=== PATIENT | female | born 1985 | race Hispanic/Latino ===

== ENCOUNTER 2017-10-15 13:18 | Emergency (ER) | payer SELFPAY ==
[2017-10-15] MEDS ORDERED: LIDOCAINE 1% MPF 5 ML VIAL ONE (13:45)
--- NOTE | 2017-10-15 14:35 | EDPHYS ---
Physician Documentation [facility] Name: Tammie Do Age: 32 yrs Sex: Female : 1985 Arrival Date: 10/15/2017 Time: 13:25 Bed 25 Private MD: ED Physician Edinson Christian HPI: 10/15 14:29 This 32 yrs old Female presents to ER via Ambulatory with complaints of rn Abscess. 14:29 The patient presents with an abscess of the face. Description: draining, erythematous, rn swollen. Onset: The symptoms/episode began/occurred 2 week(s) ago. Possible cause(s): unknown. Severity of symptoms: At their worst the symptoms were mild, in the emergency department the symptoms are unchanged. The patient has not experienced similar symptoms in the past. Reports "ball" on right side of face for months, started to mess with it, now red and inflamed, hurts to touch, no fever. . 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 - Social history:: Smoking status: Patient uses tobacco products, smokes one-half pack cigarettes per day. - Ebola Screening: : Patient negative for fever greater than or equal to 101.5 degrees Fahrenheit, and additional compatible Ebola Virus Disease symptoms Patient denies exposure to infectious person Patient denies travel to an Ebola-affected area in the 21 days before illness onset No symptoms or risks identified at this time. - Family history:: not pertinent. - Hospitalizations: : No recent hospitalization is reported. ROS: 14:29 Constitutional: Negative for fever, chills, and weight loss, Skin: + abscess right face rn 14:29 Neuro: Negative for headache, weakness, numbness, tingling, and seizure. rn Exam: 14:29 Constitutional: This is a well developed, well nourished patient who is awake, alert, rn and in no acute distress. Head/Face: Normocephalic, 2cm diameter fluctuant and warm lesion right face/quaker with tenderness, non-necrotic Vital Signs: 13:26 BP 163 / 91; Pulse 97; Resp 16; Temp 98.6; Pulse Ox 98% on R/A; Weight 52.16 kg; Height aj 4 ft. 9 in. (144.78 cm); 14:42 BP 138 / 90; Pulse 95; Resp 16; Pulse Ox 99% ; kr2 13:26 Body Mass Index 24.89 (52.16 kg, 144.78 cm) Procedures: 14:29 I \\T\\ D: Incision and drainage was performed for an abscess of the right face Prepped rn with Betadine, Anesthetized with 3 ml's 1% Lidocaine. Incised with #11 blade. Drained moderate amount purulent fluid. Dressing: band-aid the patient tolerated the procedure well. MDM: 13:26 Patient medically screened. rn 14:29 Differential diagnosis: abscess. Data reviewed: vital signs, nurses notes, and as a rn result, I will discharge patient. Counseling: I had a detailed discussion with the patient and/or guardian regarding: the historical points, exam findings, and any diagnostic results supporting the discharge/admit diagnosis, the need for outpatient follow up, to return to the emergency department if symptoms worsen or persist or if there are any questions or concerns that arise at home. Response to treatment: the patient's symptoms have markedly improved after treatment, Abscess completely drained, forehead now flattened and non-tender, and as a result, I will discharge patient. Special discussion: I discussed with the patient/guardian in detail that at this point there is no indication for admission to the hospital. It is understood, however, that if the symptoms persist or worsen the patient needs to return immediately for re-evaluation. Based on the history and exam findings, there is no indication for further emergent testing or inpatient evaluation. I discussed with the patient/guardian the need to see the contact assembler for further evaluation of the symptoms. I discussed with the patient/guardian the need to see the plastic surgeon for further evaluation of the symptoms. Administered Medications: 14:00 Drug: Lidocaine (1 %) 1 vials {Note: Given by Dr. Christian.} Volume: 5 ml; Route: kr2 Infiltration; 14:43 Follow up: Response: No adverse reaction kr2 Disposition: 10/15/17 14:34 Discharged to Home. Impression: Cutaneous abscess of face. - Condition is Stable. - Discharge Instructions: Abscess, Incision and Drainage. - Prescriptions for Clindamycin HCl 300 mg Oral Capsule - take 1 capsule by ORAL route every 6 hours for 10 days; 40 capsule. - Medication Reconciliation Form, Thank You Letter, Antibiotic Education, Prescription Opioid Use form. - Follow up: Private Physician; When: As needed; Reason: Recheck today's complaints, Re-evaluation by your physician. - Problem is new. - Symptoms have improved. Signatures: Carla Gutierrez RN RN Edinson Pinto MD MD rn Reaves, Karey, RN RN kr2 Corrections: (The following items were deleted from the chart) 14:31 14:29 Constitutional: This is a well developed, well nourished patient who is awake, rn alert, and in no acute distress. Head/Face: Normocephalic, 2cm diameter fluctuant and warm lesion right face/quaker with tenderness rn 14:43 14:34 10/15/2017 14:34 Discharged to Home. Impression: Cutaneous abscess of face. kr2 Condition is Stable. Forms are Medication Reconciliation Form, Thank You Letter, Antibiotic Education, Prescription Opioid Use. Follow up: Private Physician; When: As needed; Reason: Recheck today's complaints, Re-evaluation by your physician. Problem is new. Symptoms have improved. rn
--- NOTE | 2017-10-15 14:35 | ER ---
Nurse's Notes [facility] Name: Tammie Do Age: 32 yrs Sex: Female : 1985 Arrival Date: 10/15/2017 Time: 13:25 Bed 25 Private MD: Diagnosis: Cutaneous abscess of face Presentation: 10/15 13:25 Presenting complaint: Patient states: Abscess to right episcopal for 1 month that became aj inflamed after patient lanced at home ICU TECH. Transition of care: patient was not received from another setting of care. Onset of symptoms was September 15, 2017. Risk Assessment: Do you want to hurt yourself or someone else? Patient reports no desire to harm self or others. Initial Sepsis Screen: Does the patient meet any 2 criteria? No. Patient's initial sepsis screen is negative. Does the patient have a suspected source of infection? No. Patient's initial sepsis screen is negative. Care prior to arrival: None. 13:25 Method Of Arrival: Ambulatory aj 13:25 Acuity: YARELI 4 aj Triage Assessment: 13:26 General: Appears in no apparent distress. comfortable, Behavior is calm, cooperative, aj appropriate for age. Pain: Complains of pain in right episcopal. Neuro: Level of Consciousness is awake, alert, obeys commands, Oriented to person, place, time, situation, Appropriate for age. Respiratory: Airway is patent Respiratory effort is even, unlabored, Respiratory pattern is regular, symmetrical. Derm: Skin is intact, is healthy with good turgor, Skin is pink, warm \T\ dry. normal, Abscess located on right episcopal is dime sized, has no drainage, is red, is raised, was lanced by patient prior to arrival. 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 - Social history:: Smoking status: Patient uses tobacco products, smokes one-half pack cigarettes per day. - Ebola Screening: : Patient negative for fever greater than or equal to 101.5 degrees Fahrenheit, and additional compatible Ebola Virus Disease symptoms Patient denies exposure to infectious person Patient denies travel to an Ebola-affected area in the 21 days before illness onset No symptoms or risks identified at this time. - Family history:: not pertinent. - Hospitalizations: : No recent hospitalization is reported. Screenin:19 Abuse screen: Denies threats or abuse. Denies injuries from another. Nutritional kr2 screening: No deficits noted. Tuberculosis screening: No symptoms or risk factors identified. Fall Risk None identified. Assessment: 13:30 General: Appears in no apparent distress. comfortable, well groomed, well developed, kr2 well nourished, Behavior is calm, cooperative, appropriate for age. Pain: Complains of pain in right episcopal Pain currently is 8 out of 10 on a pain scale. Quality of pain is described as aching, tender, Is continuous, Alleviated by nothing. Neuro: Level of Consciousness is awake, alert, obeys commands, Oriented to person, place, time, situation, Appropriate for age. Cardiovascular: Capillary refill < 3 seconds in bilateral fingers Patient's skin is warm and dry. Respiratory: Airway is patent Respiratory effort is even, unlabored, Respiratory pattern is regular, symmetrical. EENT: Oral mucosa is moist. Derm: Skin is intact, is healthy with good turgor, Skin is pink, warm \T\ dry. Abscess located on right episcopal is nickel sized, has no drainage, is raised. Vital Signs: 13:26 BP 163 / 91; Pulse 97; Resp 16; Temp 98.6; Pulse Ox 98% on R/A; Weight 52.16 kg; Height aj 4 ft. 9 in. (144.78 cm); 14:42 BP 138 / 90; Pulse 95; Resp 16; Pulse Ox 99% ; kr2 13:26 Body Mass Index 24.89 (52.16 kg, 144.78 cm) ED Course: 13:25 Patient arrived in ED. aj 13:25 Triage completed. aj 13:26 Edinson Christian MD is Attending Physician. rn 13:26 Arm band placed on left wrist. Patient placed in an exam room. aj 13:35 Door closed. Warm blanket given. Head of bed elevated. kr2 13:40 La Beauchamp, DARLINE is Primary Nurse. kr2 14:00 Assist provider with I \T\ D: of an abscess on right episcopal Set up I\T\D tray. Performed by kr 2 Edinson Christian MD Dressing with 4X4s, tape Patient tolerated well. Patient did not have IV access during this emergency room visit. 14:22 Patient has correct armband on for positive identification. Bed in low position. Call kr2 light in reach. Side rails up X 1. Pulse ox on. NIBP on. Administered Medications: 14:00 Drug: Lidocaine (1 %) 1 vials {Note: Given by Dr. Christian.} Volume: 5 ml; Route: kr2 Infiltration; 14:43 Follow up: Response: No adverse reaction kr2 Outcome: 14:34 Discharge ordered by . rn 14:42 Discharged to home ambulatory, with friend. kr2 14:42 Condition: good 14:42 Discharge instructions given to patient, Instructed on discharge instructions, follow up and referral plans. medication usage, wound care, Demonstrated understanding of instructions, follow-up care, medications, wound care, Prescriptions given X 1. 14:43 Patient left the ED. kr2 Signatures: Carla Gutierrez RN RN aj Nieto, Roman, MD MD rn Reaves, Karey, RN RN kr2
== END 2017-10-15 14:43 | disposition home or self-care (01) ==
LOC: ER 13:18
PROC: 0J910ZZ Drainage of Face Subcutaneous Tissue and Fascia, Open Approach (ICD-10-PCS; principal; 2017-10-15)
DX: L02.01 Cutaneous abscess of face (principal); F17.210 Nicotine dependence, cigarettes, uncomplicated
CPT/HCPCS: 99284

== ENCOUNTER 2018-10-07 15:35 | Emergency (ER) | payer SELFPAY ==
[2018-10-07] MEDS ORDERED: TOBRAMYCIN 0.3% 5ML OPTH DROPS OPTH ONE (16:45)
[2018-10-07] MEDS ORDERED: TOBRAMYCIN SULF 80 MG/2 ML VIAL ONE (16:49)
--- NOTE | 2018-10-07 16:49 | EDPHYS ---
Physician Documentation [facility] Name: Tammie Do Age: 33 yrs Sex: Female : 1985 Arrival Date: 10/07/2018 Time: 15:38 Bed 16 Private MD: ED Physician eLatha Vail HPI: 10/07 16:51 This 33 yrs old Female presents to ER via Ambulatory with complaints of Eye snw Problem. 15:49 The patient is experiencing eyelid swelling post mowing, to the left eye, caused by snw debris. Onset: The symptoms/episode began/occurred suddenly, this morning. Duration: the symptoms are continuous. Aggravated by pressure. Patient "need glasses". Severity of symptoms: At their worst the symptoms were mild. The patient has not experienced similar symptoms in the past. The patient has not recently seen a physician. 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 - Social history:: Smoking status: Patient/guardian denies using tobacco. - Ebola Screening: : Patient negative for fever greater than or equal to 101.5 degrees Fahrenheit, and additional compatible Ebola Virus Disease symptoms Patient denies exposure to infectious person Patient denies travel to an Ebola-affected area in the 21 days before illness onset No symptoms or risks identified at this time. ROS: 15:49 Constitutional: Negative for fever, chills, and weight loss, ENT: Negative for injury, snw pain, and discharge, Neck: Negative for injury, pain, and swelling, Cardiovascular: Negative for chest pain, palpitations, and edema, Respiratory: Negative for shortness of breath, cough, wheezing, and pleuritic chest pain, Abdomen/GI: Negative for abdominal pain, nausea, vomiting, diarrhea, and constipation, Back: Negative for injury and pain, : Negative for injury, bleeding, discharge, and swelling, MS/Extremity: Negative for injury and deformity, Skin: Negative for injury, rash, and discoloration, Neuro: Negative for headache, weakness, numbness, tingling, and seizure, Psych: Negative for depression, anxiety, suicide ideation, homicidal ideation, and hallucinations. 15:49 Eyes: Positive for swelling, of the left upper eyelid and left lower eyelid. Exam: 15:48 Constitutional: This is a well developed, well nourished patient who is awake, alert, snw and in no acute distress. Head/Face: Normocephalic, atraumatic. ENT: Nares patent. No nasal discharge, no septal abnormalities noted. Tympanic membranes are normal and external auditory canals are clear. Oropharynx with no redness, swelling, or masses, exudates, or evidence of obstruction, uvula midline. Mucous membranes moist. Neck: Trachea midline, no thyromegaly or masses palpated, and no cervical lymphadenopathy. Supple, full range of motion without nuchal rigidity, or vertebral point tenderness. No Meningismus. Chest/axilla: Normal chest wall appearance and motion. Nontender with no deformity. No lesions are appreciated. Cardiovascular: Regular rate and rhythm with a normal S1 and S2. No gallops, murmurs, or rubs. Normal PMI, no JVD. No pulse deficits. Respiratory: Lungs have equal breath sounds bilaterally, clear to auscultation and percussion. No rales, rhonchi or wheezes noted. No increased work of breathing, no retractions or nasal flaring. Abdomen/GI: Soft, non-tender, with normal bowel sounds. No distension or tympany. No guarding or rebound. No evidence of tenderness throughout. Back: No spinal tenderness. No costovertebral tenderness. Full range of motion. Skin: Warm, dry with normal turgor. Normal color with no rashes, no lesions, and no evidence of cellulitis. MS/ Extremity: Pulses equal, no cyanosis. Neurovascular intact. Full, normal range of motion. Neuro: Awake and alert, GCS 15, oriented to person, place, time, and situation. Cranial nerves II-XII grossly intact. Motor strength 5/5 in all extremities. Sensory grossly intact. Cerebellar exam normal. Normal gait. Psych: Awake, alert, with orientation to person, place and time. Behavior, mood, and affect are within normal limits. 15:48 Eyes: Periorbital structures: swelling, that is moderate, on the left upper eyelid and left lower eyelid, Pupils: no acute changes, Extraocular movements: no acute changes, Conjunctiva: no acute changes, Corneas: no acute changes, Anterior chamber: normal, no hyphema. Vital Signs: 15:43 BP 142 / 89; Pulse 76; Resp 18 S; Pulse Ox 99% on R/A; Pain 5/10; sg 16:30 BP 127 / 73; Pulse 75; Resp 16 S; Pulse Ox 99% on R/A; ca1 17:30 BP 123 / 71; Pulse 73; Resp 16; Pulse Ox 100% on R/A; ca1 Visual Acuity: 16:40 Left Eye Visual acuity 20/20, Normal; Right Eye Visual acuity 20/20, Normal; Both Eyes ca1 Visual acuity 20/20; Without Lenses; MDM: 15:41 Patient medically screened. snw 16:50 Data reviewed: vital signs, nurses notes. Data interpreted: Pulse oximetry: on room air snw is 99 %. Interpretation: normal. Special discussion: I have referred the patient to see his PCP for further evaluation of high blood pressure. Based on the history and exam findings, there is no indication for further emergent testing or inpatient evaluation. I discussed with the patient/guardian the need to see the opthamologist for further evaluation of the symptoms, I discussed with the patient/guardian the need to see the primary care provider for further evaluation of the symptoms. 10/07 15:46 Order name: Visual Acuity; Complete Time: 16:44 snw Administered Medications: 17:04 Drug: Tobramycin Drops (0.3 %) 2 drops Route: Ophthalmic; Site: left eye; ca1 Disposition: 19:46 Co-signature as Attending Physician, Leatha Vail MD. ma2 Disposition: 10/07/18 16:48 Discharged to Home. Impression: Edema of eyelid. - Condition is Stable. - Discharge Instructions: Edema, How to Use Eye Drops and Eye Ointments, Eye Contusion, [id number]. - Prescriptions for Polytrim 10,000 unit- 1 mg/mL Ophthalmic drops - instill 2 drop by OPHTHALMIC route every 6 hours for 7 days; 1 Container. - Medication Reconciliation Form, Thank You Letter, Antibiotic Education, Prescription Opioid Use form. - Follow up: Emergency Department; When: As needed; Reason: Worsening of condition. Follow up: Katharina Friedman MD; When: 1 - 2 days; Reason: Recheck today's complaints, Continuance of care. Signatures: Mike Sullivan RN Julia Eastman, BITUMASTIC APPLIER-C BITUMASTIC APPLIER-Csnw Leatha Vail MD MD ma2 Maddy Dhaliwal RN RN ca1 Corrections: (The following items were deleted from the chart) 17:37 16:48 10/07/2018 16:48 Discharged to Home. Impression: Edema of eyelid. Condition is ca1 Stable. Forms are Medication Reconciliation Form, Thank You Letter, Antibiotic Education, Prescription Opioid Use. Follow up: Emergency Department; When: As needed; Reason: Worsening of condition. Follow up: Katharina Friedman; When: 1 - 2 days; Reason: Recheck today's complaints, Continuance of care. snw
--- NOTE | 2018-10-07 16:49 | ER ---
Nurse's Notes [facility] Name: Tammie Do Age: 33 yrs Sex: Female : 1985 Arrival Date: 10/07/2018 Time: 15:38 Bed 16 Private MD: Diagnosis: Edema of eyelid Presentation: 10/07 15:41 Presenting complaint: Patient states: I was mowing the grass yesterday afternoon, sg something flicked up and hit me in the right side of my face i dont know if it was a rock or what, but my left eye is red and irritated, it feels like something might be in my eye. Transition of care: patient was not received from another setting of care. Onset of symptoms was October 07, 2018. Risk Assessment: Do you want to hurt yourself or someone else? Patient reports no desire to harm self or others. Initial Sepsis Screen: Does the patient meet any 2 criteria? No. Patient's initial sepsis screen is negative. Does the patient have a suspected source of infection? No. Patient's initial sepsis screen is negative. Care prior to arrival: None. 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 - Social history:: Smoking status: Patient/guardian denies using tobacco. - Ebola Screening: : Patient negative for fever greater than or equal to 101.5 degrees Fahrenheit, and additional compatible Ebola Virus Disease symptoms Patient denies exposure to infectious person Patient denies travel to an Ebola-affected area in the 21 days before illness onset No symptoms or risks identified at this time. Screenin:45 Abuse screen: Denies threats or abuse. Denies injuries from another. Nutritional ca1 screening: No deficits noted. Tuberculosis screening: No symptoms or risk factors identified. Fall Risk None identified. Assessment: 15:45 General: Appears in no apparent distress. comfortable, Behavior is calm, cooperative, ca1 appropriate for age. Pain: Complains of pain in left lower eyelid and left upper eyelid Pain does not radiate. Pain currently is 6 out of 10 on a pain scale. Pain began 1 day ago. Neuro: Level of Consciousness is awake, alert, obeys commands, Oriented to person, place, time, situation. Cardiovascular: Heart tones S1 S2 present Capillary refill < 3 seconds Patient's skin is warm and dry. Respiratory: Airway is patent Respiratory effort is even, unlabored, Respiratory pattern is regular, symmetrical, Breath sounds are clear bilaterally. GI: No deficits noted. No signs and/or symptoms were reported involving the gastrointestinal system. : No deficits noted. No signs and/or symptoms were reported regarding the genitourinary system. EENT: Eyes Sclera/Cornea are clear in outer aspect of conjuctiva of left eye and inner aspect of conjunctiva of left eye. Derm: Skin is intact, is healthy with good turgor, Skin is pink, warm \T\ dry. Musculoskeletal: Circulation, motion, and sensation intact. Capillary refill < 3 seconds, Range of motion: intact in all extremities. 16:40 Reassessment: Patient appears in no apparent distress at this time. Patient and/or ca1 family updated on plan of care and expected duration. Pain level reassessed. Patient is alert, oriented x 3, equal unlabored respirations, skin warm/dry/pink. 17:30 Reassessment: Patient appears in no apparent distress at this time. Patient is alert, ca1 oriented x 3, equal unlabored respirations, skin warm/dry/pink. Vital Signs: 15:43 BP 142 / 89; Pulse 76; Resp 18 S; Pulse Ox 99% on R/A; Pain 5/10; sg 16:30 BP 127 / 73; Pulse 75; Resp 16 S; Pulse Ox 99% on R/A; ca1 17:30 BP 123 / 71; Pulse 73; Resp 16; Pulse Ox 100% on R/A; ca1 Visual Acuity: 16:40 Left Eye Visual acuity 20/20, Normal; Right Eye Visual acuity 20/20, Normal; Both Eyes ca1 Visual acuity 20/20; Without Lenses; ED Course: 15:38 Patient arrived in ED. rg4 15:41 Julia Castelan FNP-C [facility]. snw 15:41 Leatha Vail MD is Attending Physician. snw 15:42 Triage completed. sg 15:42 Arm band placed on. sg 15:45 Patient has correct armband on for positive identification. Bed in low position. Call ca1 light in reach. Side rails up X 1. Pulse ox on. NIBP on. 16:31 Maddy Dhaliwal, RN is Primary Nurse. ca1 16:48 Katharina Friedman MD is Referral Physician. snw 17:34 No provider procedures requiring assistance completed. Patient did not have IV access ca1 during this emergency room visit. Administered Medications: 17:04 Drug: Tobramycin Drops (0.3 %) 2 drops Route: Ophthalmic; Site: left eye; ca1 Outcome: 16:48 Discharge ordered by . snw 17:36 Discharged to home ambulatory. ca1 17:36 Condition: stable 17:36 Discharge instructions given to patient, Instructed on discharge instructions, follow up and referral plans. medication usage, Demonstrated understanding of instructions, follow-up care, medications, Prescriptions given X 1. 17:37 Patient left the ED. ca1 Signatures: Mike Sullivan, RN RN sg Julia Castelan, FIRST CRUSHER-C FIRST CRUSHER-Csnw Janet Villarreal rg4 Maddy Dhaliwal, RN RN ca1
== END 2018-10-07 17:37 | disposition home or self-care (01) ==
LOC: ER 15:35
DX: H02.846 Edema of left eye, unspecified eyelid (principal)
CPT/HCPCS: 99283

== ENCOUNTER 2019-04-20 14:03 | Emergency (ER) | payer SELFPAY ==
--- NOTE | 2019-04-20 15:29 | ER ---
Nurse's Notes [facility] Name: Tammie Do Age: 33 yrs Sex: Female : 1985 Arrival Date: 04/20/2019 Time: 14:06 Bed 14 Private MD: Diagnosis: Acute bronchitis;Acute sinusitis Presentation: 04/20 14:08 Presenting complaint: Patient states: i have sore throat, vomiting, dizziness for 3 mg2 days now. Transition of care: patient was not received from another setting of care. Onset of symptoms was April 18, 2019. Risk Assessment: Do you want to hurt yourself or someone else? Patient reports no desire to harm self or others. Initial Sepsis Screen: Does the patient meet any 2 criteria? No. Patient's initial sepsis screen is negative. Does the patient have a suspected source of infection? No. Patient's initial sepsis screen is negative. Care prior to arrival: None. 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 - Social history:: Smoking status: Patient uses tobacco products, 2 sticks /2 days, Patient uses alcohol, occasionally. Patient/guardian denies using street drugs, IV drugs. - Ebola Screening: : No symptoms or risks identified at this time. Screenin:30 Abuse screen: Denies threats or abuse. Denies injuries from another. Nutritional jl7 screening: No deficits noted. Tuberculosis screening: No symptoms or risk factors identified. Fall Risk None identified. Assessment: 14:30 General: Appears in no apparent distress. uncomfortable, Behavior is calm, cooperative, jl7 appropriate for age. Pain: Complains of pain in sore throat, CHAVES. Neuro: Level of Consciousness is awake, alert, obeys commands, Oriented to person, place, time, situation. Cardiovascular: Patient's skin is warm and dry. Respiratory: Airway is patent Respiratory effort is even, unlabored, Respiratory pattern is regular, symmetrical. GI: Abdomen is non-distended, Reports N/V/D 2 days ago. Derm: Skin is pink, warm \T\ dry. Vital Signs: 14:10 BP 142 / 102; Pulse 89; Resp 18; Temp 98.7; Pulse Ox 100% on R/A; Weight 52.16 kg; mg2 Height 4 ft. 9 in. (144.78 cm); 14:10 Body Mass Index 24.89 (52.16 kg, 144.78 cm) mg2 ED Course: 14:06 Patient arrived in ED. mr 14:10 Triage completed. mg2 14:12 Arm band placed on. mg2 14:14 Flu and/or RSV swab sent to lab. Strep swab sent to lab. mg2 14:30 Rahul De La Fuente, DARLINE is Primary Nurse. jl7 14:30 Patient has correct armband on for positive identification. Bed in low position. Call jl7 light in reach. Side rails up X 1. 14:47 Julia Castealn FNP-C [facility]. snw 14:47 Edinson Christian MD is Attending Physician. snw 16:04 No provider procedures requiring assistance completed. Patient did not have IV access jl7 during this emergency room visit. Administered Medications: 15:56 Drug: predniSONE 40 mg Route: PO; jl7 15:56 Drug: Pepcid 20 mg Route: PO; jl7 15:56 Drug: Albuterol 2.5 mg Route: Inhalation; jl7 15:56 Drug: Zithromax 500 mg Route: PO; jl7 15:56 Drug: ZyrTEC - Cetirizine 10 mg Route: PO; jl7 Outcome: 15:28 Discharge ordered by . snw 16:04 Discharged to home ambulatory. jl7 16:04 Condition: stable 16:04 Discharge instructions given to patient, Instructed on discharge instructions, follow up and referral plans. medication usage, Demonstrated understanding of instructions, follow-up care, medications, Prescriptions given X 5 16:05 Patient left the ED. jl7 Signatures: Julia Castelan FNP-C FNP-Csnw HodgeEstrella mr Rahul De La Fuente, RN RN jl7 Holden Alcantar, DARLINE RN mg2
--- NOTE | 2019-04-20 15:30 | EDPHYS ---
Physician Documentation [facility] Name: Tammie Do Age: 33 yrs Sex: Female : 1985 Arrival Date: 04/20/2019 Time: 14:06 Bed 14 Private MD: ED Physician Edinson Christian HPI: 04/20 15:55 This 33 yrs old Female presents to ER via Ambulatory with complaints of snw Vomiting, Sinus Congestion, Sore Throat. 15:55 The patient or guardian reports cough, described as moderate. Onset: The snw symptoms/episode began/occurred suddenly, and became persistent 3 days ago. Modifying factors: The symptoms are alleviated by nothing. the symptoms are aggravated by lying flat. Associated signs and symptoms: Pertinent positives: nausea, rhinorrhea, sore throat, vomiting, headache, cough, congestion. Severity of symptoms: At their worst the symptoms were moderate severe in the emergency department the symptoms. It is unknown whether or not the patient has had similar symptoms in the past. It is unknown whether or not the patient has recently seen a physician. 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 - Social history:: Smoking status: Patient uses tobacco products, 2 sticks /2 days, Patient uses alcohol, occasionally. Patient/guardian denies using street drugs, IV drugs. - Ebola Screening: : No symptoms or risks identified at this time. ROS: 15:53 Constitutional: Negative for fever, chills, and weight loss, Eyes: Negative for injury, snw pain, redness, and discharge, ENT: Negative for injury, Positive sore throat, drainage and discharge, Neck: Negative for injury, pain, and swelling, Cardiovascular: Negative for chest pain, palpitations, and edema. 15:53 Back: Negative for injury and pain, : Negative for injury, bleeding, discharge, and swelling, MS/Extremity: Negative for injury and deformity, Skin: Negative for injury, rash, and discoloration, Psych: Negative for depression, anxiety, suicide ideation, homicidal ideation, and hallucinations. 15:53 Respiratory: Positive for cough, with rust-colored sputum. 15:53 Abdomen/GI: Positive for nausea, vomiting. 15:53 Neuro: Positive for headache. Exam: 15:52 Head/Face: Normocephalic, atraumatic. Eyes: Pupils equal round and reactive to light, snw extra-ocular motions intact. Lids and lashes normal. Conjunctiva and sclera are non-icteric and not injected. Cornea within normal limits. Periorbital areas with no swelling, redness, or edema. Neck: Trachea midline, no thyromegaly or masses palpated, and no cervical lymphadenopathy. Supple, full range of motion without nuchal rigidity, or vertebral point tenderness. No Meningismus. Chest/axilla: Normal chest wall appearance and motion. Nontender with no deformity. No lesions are appreciated. Cardiovascular: Regular rate and rhythm with a normal S1 and S2. No gallops, murmurs, or rubs. Normal PMI, no JVD. No pulse deficits. Respiratory: Lungs have equal breath sounds bilaterally, clear to auscultation and percussion. No rales, rhonchi or wheezes noted. No increased work of breathing, no retractions or nasal flaring. Abdomen/GI: Soft, non-tender, with normal bowel sounds. No distension or tympany. No guarding or rebound. No evidence of tenderness throughout. Back: No spinal tenderness. No costovertebral tenderness. Full range of motion. Skin: Warm, dry with normal turgor. Normal color with no rashes, no lesions, and no evidence of cellulitis. MS/ Extremity: Pulses equal, no cyanosis. Neurovascular intact. Full, normal range of motion. Neuro: Awake and alert, GCS 15, oriented to person, place, time, and situation. Cranial nerves II-XII grossly intact. Motor strength 5/5 in all extremities. Sensory grossly intact. Cerebellar exam normal. Normal gait. Psych: Awake, alert, with orientation to person, place and time. Behavior, mood, and affect are within normal limits. 15:52 Constitutional: The patient appears alert, awake, uncomfortable. 15:52 ENT: External ear(s): are unremarkable, Ear canal(s): are normal, TM's: Nose: Nasal mucosa: edematous, nasal drainage, and is seen coming from both nares, that is clear, Mouth: is normal, Posterior pharynx: erythema, that is moderate, that is marked, Voice: is normal, Breath odor: cigarettes . Vital Signs: 14:10 BP 142 / 102; Pulse 89; Resp 18; Temp 98.7; Pulse Ox 100% on R/A; Weight 52.16 kg; mg2 Height 4 ft. 9 in. (144.78 cm); 14:10 Body Mass Index 24.89 (52.16 kg, 144.78 cm) mg2 MDM: 15:00 Patient medically screened. snw 15:29 Data reviewed: vital signs, nurses notes. Data interpreted: Pulse oximetry: on room air snw is 100 %. Interpretation: normal. Counseling: I had a detailed discussion with the patient and/or guardian regarding: the historical points, exam findings, and any diagnostic results supporting the discharge/admit diagnosis, the presence of at least one elevated blood pressure reading (>120/80) during this emergency department visit, lab results, the need for outpatient follow up, to return to the emergency department if symptoms worsen or persist or if there are any questions or concerns that arise at home. 04/20 14:10 Order name: Flu; Complete Time: 15:12 snw 04/20 14:10 Order name: Strep; Complete Time: 15:12 snw 04/20 15:07 Order name: Throat Culture EDMS Administered Medications: 15:56 Drug: predniSONE 40 mg Route: PO; jl7 15:56 Drug: Pepcid 20 mg Route: PO; jl7 15:56 Drug: Albuterol 2.5 mg Route: Inhalation; jl7 15:56 Drug: Zithromax 500 mg Route: PO; jl7 15:56 Drug: ZyrTEC - Cetirizine 10 mg Route: PO; jl7 Disposition: 17:50 Co-signature as Attending Physician, Edinson Christian MD. rn Disposition: 04/20/19 15:28 Discharged to Home. Impression: Acute bronchitis, Acute sinusitis. - Condition is Stable. - Discharge Instructions: Acute Bronchitis, Adult, Hypertension, Sinusitis, Adult, Steps to Quit Smoking, Smoking Hazards, Cough, Adult, Rehydration, Adult. - Prescriptions for Zyrtec 10 mg Oral Tablet - take 1 tablet by ORAL route once daily As needed; 20 tablet. Prednisone 20 mg Oral Tablet - take 2 tablet by ORAL route once daily for 5 days; 10 tablet. Albuterol Sulfate 90 mcg/actuation - inhale 1-2 puff by INHALATION route every 4-6 hours; 1 Inhaler. Pepcid 20 mg Oral Tablet - take 1 tablet by ORAL route once daily for 10 days; 10 tablet. Zithromax 500 mg Oral Tablet - take 1 tablet by ORAL route once daily for 5 days; 5 tablet. - Work release form, Medication Reconciliation Form, Thank You Letter, Antibiotic Education, Prescription Opioid Use form. - Follow up: Emergency Department; When: As needed; Reason: Worsening of condition. Follow up: Private Physician; When: 2 - 3 days; Reason: Recheck today's complaints, Continuance of care, Re-evaluation by your physician. Signatures: Dispatcher [employer] EDMS Julia Castelan, TABITHA-C DIRECTOR [employer]-Csnw Edinson Christian MD MD rn Leal, Jahala, RN RN jl7 Holden Alcantar RN RN mg2 Corrections: (The following items were deleted from the chart) 16:05 15:28 04/20/2019 15:28 Discharged to Home. Impression: Acute bronchitis; Acute jl7 sinusitis. Condition is Stable. Forms are Medication Reconciliation Form, Thank You Letter, Antibiotic Education, Prescription Opioid Use. Follow up: Emergency Department; When: As needed; Reason: Worsening of condition. Follow up: Private Physician; When: 2 - 3 days; Reason: Recheck today's complaints, Continuance of care, Re-evaluation by your physician. snw
[2019-04-20] MEDS ORDERED: CETIRIZINE HCL 5 MG TABLET ONE (15:51)
[2019-04-20] MEDS ORDERED: predniSONE 20 MG TAB ONE (15:51)
[2019-04-20] MEDS ORDERED: AZITHROMYCIN 250 MG TAB ONE (15:51)
[2019-04-20] MEDS ORDERED: ALBUTEROL 2.5 MG/3 ML NEB SOL ONE (15:51)
[2019-04-20] MEDS ORDERED: FAMOTIDINE 20 MG TAB ONE (15:51)
[2019-04-20 17:35] VITALS: BP 142/102; TEMP 98.7; O2SAT 100
== END 2019-04-20 16:05 | disposition home or self-care (01) ==
LOC: ER 14:03
DX: J20.9 Acute bronchitis, unspecified (principal); J01.90 Acute sinusitis, unspecified
CPT/HCPCS: 87070; 87081; 87804; 99284; J7512

== ENCOUNTER 2019-11-09 20:13 | Emergency (ER) | payer SELFPAY ==
[2019-11-09] MEDS ORDERED: LIDOCAINE 1% 20 ML MDV ONE (21:21)
--- NOTE | 2019-11-09 22:08 | ER ---
Nurse's Notes [facility] Name: Tammie Do Age: 34 yrs Sex: Female : 1985 Arrival Date: 11/09/2019 Time: 20:15 Bed 25 Private MD: Diagnosis: Laceration without foreign body of left forearm Presentation: 11/08 20:45 Chief complaint: Patient states: Lac on L forearm by a glass bottle. bleeding ca1 controlled. Coronavirus screen: Client denies travel out of the [place] in the last 14 days. At this time, the client does not indicate any symptoms associated with coronavirus-19. Ebola Screen: Patient negative for fever greater than or equal to 101.5 degrees Fahrenheit, and additional compatible Ebola Virus Disease symptoms Patient denies exposure to infectious person. Initial Sepsis Screen: Does the patient meet any 2 criteria? No. Patient's initial sepsis screen is negative. Does the patient have a suspected source of infection? No. Patient's initial sepsis screen is negative. Risk Assessment: Do you want to hurt yourself or someone else? Patient reports no desire to harm self or others. Onset of symptoms was November 09, 2019. 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 - Social history:: Smoking status: Patient reports the use of cigarette tobacco products, smokes one-half pack cigarettes per day. Screenin:50 Abuse screen: Denies threats or abuse. Nutritional screening: No deficits noted. jb4 Tuberculosis screening: No symptoms or risk factors identified. Fall Risk None identified. Assessment: 20:50 General: Appears in no apparent distress. comfortable, Behavior is calm, cooperative, jb4 appropriate for age. Pain: Complains of pain in dorsal aspect of left forearm Pain does not radiate. Pain currently is 6 out of 10 on a pain scale. Quality of pain is described as throbbing. Neuro: Level of Consciousness is awake, alert, obeys commands, Oriented to person, place, time, situation. Cardiovascular: Capillary refill < 3 seconds is brisk in left fingers Patient's skin is warm and dry. Pulses are 3+ in left radial artery. Respiratory: Airway is patent Respiratory effort is even, unlabored, Respiratory pattern is regular, symmetrical. GI: No signs and/or symptoms were reported involving the gastrointestinal system. : No signs and/or symptoms were reported regarding the genitourinary system. EENT: No signs and/or symptoms were reported regarding the EENT system. Derm: Skin is pink, warm \T\ dry. Musculoskeletal: Circulation, motion, and sensation intact. Capillary refill < 3 seconds, is brisk, in left fingers. Range of motion: intact in all extremities. Injury Description: Laceration sustained to dorsal aspect of left forearm is clean, 2.6 to 7.5 cm long, not bleeding, is bleeding moderately. 22:32 Reassessment: Patient appears in no apparent distress at this time. Patient and/or jb4 family updated on plan of care and expected duration. Pain level reassessed. Patient is alert, oriented x 3, equal unlabored respirations, skin warm/dry/pink. PT verbalized understanding of d/c and follow up instructions. Denies questions or concerns. Ambulated out of ED with steady gait. Vital Signs: 20:45 BP 151 / 86; Pulse 115; Resp 19 S; Temp 99.6(O); Pulse Ox 98% on R/A; Weight 61.23 kg ca1 (R); Height 4 ft. 9 in. (144.78 cm); 21:00 BP 130 / 87; Pulse 100; Resp 16; Pulse Ox 100% on R/A; jb4 21:45 BP 142 / 104; Pulse 114; Resp 16; Pulse Ox 99% on R/A; Pain 2/10; jb4 20:45 Body Mass Index 29.21 (61.23 kg, 144.78 cm) ca1 ED Course: 20:15 Patient arrived in ED. ag3 20:47 Triage completed. ca1 20:48 Arm band placed on right wrist. ca1 20:50 Patient has correct armband on for positive identification. Bed in low position. Call jb4 light in reach. Side rails up X 1. Pulse ox on. NIBP on. 20:51 [facility]ett [facility]. jr8 20:51 Edinson Christian MD is Attending Physician. jr8 21:07 Marvin Harrison, RN is Primary Nurse. jb4 21:15 Assist provider with laceration repair on dorsal aspect of left forearm that was jb4 between 2.6 to 7.5 cm using sutures. Set up tray. Performed by Eugene MOTT Dressed with 4X4s, Patient tolerated well. 21:15 Patient did not have IV access during this emergency room visit. jb4 Administered Medications: 21:31 Drug: Lidocaine (1 %) 1 vials {Note: Administered by ER provider..} Volume: 20 ml; jb4 Route: Infiltration; 22:00 Follow up: Response: No adverse reaction jb4 Outcome: 22:08 Discharge ordered by . jr8 22:37 Discharged to home ambulatory. jb4 22:37 Condition: stable 22:37 Discharge instructions given to patient, Instructed on discharge instructions, follow up and referral plans. Demonstrated understanding of instructions, follow-up care. 22:37 Patient left the ED. jb4 Signatures: Eugene Barnett PA PA jr8 Marvin Harrison, RN RN jb4 Mitra Cantu ag3 Maddy Dhaliwal RN RN ca1
--- NOTE | 2019-11-09 22:09 | EDPHYS ---
Physician Documentation [facility] Name: Tammie Do Age: 34 yrs Sex: Female : 1985 Arrival Date: 11/09/2019 Time: 20:15 Bed 25 Private MD: ED Physician Edinson Christian HPI: 11/08 21:00 This 34 yrs old Female presents to ER via Ambulatory with complaints of jr8 Laceration To Arm. 21:00 The patient has a laceration related to: working, occurred at home. The laceration(s) jr8 is(are) located on the left arm. Onset: The symptoms/episode began/occurred acutely, today. Associated signs and symptoms: The patient has no apparent associated signs or symptoms. The patient has not experienced similar symptoms in the past. The patient has not recently seen a physician. Patient stated that she was putting glass bottles up and accidently lacerated arm . 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 - Social history:: Smoking status: Patient reports the use of cigarette tobacco products, smokes one-half pack cigarettes per day. ROS: 21:00 Eyes: Negative for injury, pain, redness, and discharge, ENT: Negative for injury, jr8 pain, and discharge, Neck: Negative for injury, pain, and swelling, Cardiovascular: Negative for chest pain, palpitations, and edema, Respiratory: Negative for shortness of breath, cough, wheezing, and pleuritic chest pain, Abdomen/GI: Negative for abdominal pain, nausea, vomiting, diarrhea, and constipation, Back: Negative for injury and pain, MS/Extremity: Negative for injury and deformity, Neuro: Negative for headache, weakness, numbness, tingling, and seizure. 21:00 Skin: Positive for laceration(s), of the left arm. Exam: 21:00 Constitutional: This is a well developed, well nourished patient who is awake, alert, jr8 and in no acute distress. Cardiovascular: Regular rate and rhythm with a normal S1 and S2. No gallops, murmurs, or rubs. Normal PMI, no JVD. No pulse deficits. Respiratory: Lungs have equal breath sounds bilaterally, clear to auscultation and percussion. No rales, rhonchi or wheezes noted. No increased work of breathing, no retractions or nasal flaring. MS/ Extremity: Pulses equal, no cyanosis. Neurovascular intact. Full, normal range of motion. Neuro: Awake and alert, GCS 15, oriented to person, place, time, and situation. Cranial nerves II-XII grossly intact. Motor strength 5/5 in all extremities. Sensory grossly intact. Cerebellar exam normal. Normal gait. 21:00 Skin: injury, laceration(s), the wound is approximately 5 cm(s), with a depth of .5 cm(s), of the mid forearm ventral aspect, that can be described as no foreign body, linear, without bleeding. Vital Signs: 20:45 BP 151 / 86; Pulse 115; Resp 19 S; Temp 99.6(O); Pulse Ox 98% on R/A; Weight 61.23 kg ca1 (R); Height 4 ft. 9 in. (144.78 cm); 21:00 BP 130 / 87; Pulse 100; Resp 16; Pulse Ox 100% on R/A; jb4 21:45 BP 142 / 104; Pulse 114; Resp 16; Pulse Ox 99% on R/A; Pain 2/10; jb4 20:45 Body Mass Index 29.21 (61.23 kg, 144.78 cm) ca1 Laceration: 22:06 Wound Repair of 5cm ( 2.0in ) subcutaneous laceration to dorsal aspect of left forearm. jr8 Linear shaped.. Distal neuro/vascular/tendon intact. Anesthesia: Local anesthetic administered with 6 mls of 1% lidocaine. Wound prep: Extensive cleansing with betadine, Wound irrigation with saline, Wound explored extensively. Skin closed with 9 4-0 Prolene using interrupted sutures and sterile technique. Patient tolerated well. MDM: 20:51 Patient medically screened. jr8 22:06 Data reviewed: vital signs, nurses notes, and as a result, I will discharge patient. jr8 Data interpreted: Pulse oximetry: on room air is 100 %. Interpretation: normal. Counseling: I had a detailed discussion with the patient and/or guardian regarding: the historical points, exam findings, and any diagnostic results supporting the discharge/admit diagnosis, the need for outpatient follow up, a family practitioner, to return to the emergency department if symptoms worsen or persist or if there are any questions or concerns that arise at home. 11/08 21:03 Order name: Prolene, Sutures; Complete Time: 21:13 jr8 11/08 21:03 Order name: Dressing - Wound; Complete Time: 21: jr8 11/08 21:03 Order name: Gloves, Sterile; Complete Time: 21: jr8 11/08 21:03 Order name: Setup Suture Tray; Complete Time: : jr8 Administered Medications: 21:31 Drug: Lidocaine (1 %) 1 vials {Note: Administered by ER provider..} Volume: 20 ml; jb4 Route: Infiltration; 22:00 Follow up: Response: No adverse reaction jb4 Disposition: 23:42 Co-signature as Attending Physician, Edinson Christian MD. rn Disposition: 11/09/19 22:08 Discharged to Home. Impression: Laceration without foreign body of left forearm. - Condition is Stable. - Discharge Instructions: Laceration Care, Adult. - Medication Reconciliation Form, Thank You Letter, Antibiotic Education, Prescription Opioid Use form. - Follow up: Private Physician; When: 7 - 10 days; Reason: Wound Recheck, Recheck today's complaints, Continuance of care, Staple/Suture removal, Re-evaluation by your physician. - Problem is new. - Symptoms have improved. Signatures: Edinson Christian MD MD rn Roszak, Josh, PA PA jr8 Marvin Harrison RN RN jb4 Maddy Dhaliwal RN RN ca1 Corrections: (The following items were deleted from the chart) 22:37 22:08 11/09/2019 22:08 Discharged to Home. Impression: Laceration without foreign body jb4 of left forearm. Condition is Stable. Forms are Medication Reconciliation Form, Thank You Letter, Antibiotic Education, Prescription Opioid Use. Follow up: Private Physician; When: 7 - 10 days; Reason: Wound Recheck, Recheck today's complaints, Continuance of care, Staple/Suture removal, Re-evaluation by your physician. Problem is new. Symptoms have improved. jr8
[2019-11-09 22:56] VITALS: TEMP 99.6
[2019-11-09 22:58] VITALS: BP 142/104; O2SAT 99
== END 2019-11-09 22:37 | disposition home or self-care (01) ==
LOC: ER 20:13
PROC: 0JQH0ZZ Repair Left Lower Arm Subcutaneous Tissue and Fascia, Open Approach (ICD-10-PCS; principal; 2019-11-09)
DX: S51.812A Laceration without foreign body of left forearm, initial encounter (principal); W25.XXXA Contact with sharp glass, initial encounter; Y93.89 Activity, other specified; Y92.009 Unspecified place in unspecified non-institutional (private) residence as the place of occurrence of the external cause; Z88.0 Allergy status to penicillin; Z88.7 Allergy status to serum and vaccine; F17.210 Nicotine dependence, cigarettes, uncomplicated
CPT/HCPCS: 99283

== ENCOUNTER 2019-11-10 17:01 | Emergency (ER) | payer SELFPAY ==
--- NOTE | 2019-11-10 18:02 | ER ---
Nurse's Notes [facility] Name: Tammie Do Age: 34 yrs Sex: Female : 1985 Arrival Date: 11/10/2019 Time: 17:04 Bed 25 Private MD: Diagnosis: Encounter for attention to dressings, sutures and drains-bruising Presentation: 11/09 17:46 Chief complaint: Patient states: Re-check of wound to L arm. Bruising, numbness to ks7 thumb and 1st digit L hand distal to sutures rec'd last night for laceration to L forearm. Coronavirus screen: Client denies travel out of the [place] in the last 14 days. At this time, the client does not indicate any symptoms associated with coronavirus-19. The client denies any previous COVID testing. Ebola Screen: Patient negative for fever greater than or equal to 101.5 degrees Fahrenheit, and additional compatible Ebola Virus Disease symptoms Patient denies exposure to infectious person. Patient denies travel to an Ebola-affected area in the 21 days before illness onset. Initial Sepsis Screen: Does the patient meet any 2 criteria? No. Patient's initial sepsis screen is negative. Does the patient have a suspected source of infection? No. Patient's initial sepsis screen is negative. Risk Assessment: Do you want to hurt yourself or someone else? Patient reports no desire to harm self or others. Onset of symptoms was November 10, 2019. 17:46 Method Of Arrival: Ambulatory nv7 17:46 Acuity: YARELI 5 ks7 Triage Assessment: 17:48 General: Appears in no apparent distress. Behavior is calm, cooperative. Pain: Denies ks7 pain. 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 - Social history:: Smoking status: Patient reports the use of cigarette tobacco products, smokes one-half pack cigarettes per day. - Family history:: not pertinent. Screenin:49 Abuse screen: Denies threats or abuse. Denies injuries from another. Nutritional ks7 screening: No deficits noted. Tuberculosis screening: No symptoms or risk factors identified. Fall Risk None identified. Assessment: 17:49 General: Appears in no apparent distress. Denies pt comes in for re-check of L arm. pt ks7 received sutures for L arm Laceration, last night. Bruising and numbness to L thumb and 1st digit. pt denies pain. suture sight C/D/I. no s/s of infection. Normal ROM to L hand/fingers.. Vital Signs: 17:51 BP 141 / 94; Pulse 70; Resp 18; Temp 98.7(O); Pulse Ox 100% on R/A; Pain 0/10; ks7 18:21 BP 140 / 72; Pulse 83; Resp 18; Temp 98.7(O); Pulse Ox 100% on R/A; Pain 0/10; ks7 ED Course: 17:04 Patient arrived in ED. [facility] 17:37 Nadya Rodriguez, RN is Primary Nurse. ks7 17:43 Jovanni Tillman MD is Attending Physician. [facility] 17:48 Triage completed. ks7 17:48 Arm band placed on right wrist. ks7 17:49 Resting quietly. ks7 17:49 Patient has correct armband on for positive identification. Bed in low position. Call ks7 light in reach. 17:49 No provider procedures requiring assistance completed. Patient did not have IV access ks7 during this emergency room visit. 18:00 Christophe Luke MD is Referral Physician. [facility] Administered Medications: No medications were administered Outcome: 18:01 Discharge ordered by . [facility] 18:21 Discharged to home ambulatory. ks7 18:21 Condition: good 18:21 Discharge instructions given to patient, Instructed on discharge instructions, follow up and referral plans. Demonstrated understanding of instructions, follow-up care, Prescriptions given X 18:22 Patient left the ED. ks7 Signatures: Jovanni Tillman MD MD cha James, Frank [facility] Nadya Rodriguez, DARLINE RN ks7
--- NOTE | 2019-11-10 18:02 | EDPHYS ---
Physician Documentation [facility] Name: Tammie Do Age: 34 yrs Sex: Female : 1985 Arrival Date: 11/10/2019 Time: 17:04 Bed 25 Private MD: ED Physician Jovanni Tillman HPI: 11/09 17:52 This 34 yrs old Female presents to ER via Ambulatory with complaints of Suture katie Recheck. 17:52 Patient presents to ED for recheck of: laceration. The affected area is on the dorsal katie aspect of left forearm. Progress: The patient reports excellent improvement in the affected area. There has been resolution, improvement, or non-development of any drainage, fever, pain, redness or swelling. 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 - Social history:: Smoking status: Patient reports the use of cigarette tobacco products, smokes one-half pack cigarettes per day. - Family history:: not pertinent. ROS: 17:52 Constitutional: Negative for fever, chills, and weight loss, Eyes: Negative for injury, katie pain, redness, and discharge, ENT: Negative for injury, pain, and discharge, Neck: Negative for injury, pain, and swelling, Cardiovascular: Negative for chest pain, palpitations, and edema, Respiratory: Negative for shortness of breath, cough, wheezing, and pleuritic chest pain, Abdomen/GI: Negative for abdominal pain, nausea, vomiting, diarrhea, and constipation, Back: Negative for injury and pain, : Negative for injury, bleeding, discharge, and swelling, Skin: Negative for injury, rash, and discoloration, Neuro: Negative for headache, weakness, numbness, tingling, and seizure, Psych: Negative for depression, anxiety, suicide ideation, homicidal ideation, and hallucinations, Allergy/Immunology: Negative for hives, rash, and allergies, Endocrine: Negative for neck swelling, polydipsia, polyuria, polyphagia, and marked weight changes, Hematologic/Lymphatic: Negative for swollen nodes, abnormal bleeding, and unusual bruising. 17:52 MS/extremity: Positive for ecchymosis, below suture line. Exam: 17:52 Constitutional: This is a well developed, well nourished patient who is awake, alert, katie and in no acute distress. Head/Face: Normocephalic, atraumatic. Eyes: Pupils equal round and reactive to light, extra-ocular motions intact. Lids and lashes normal. Conjunctiva and sclera are non-icteric and not injected. Cornea within normal limits. Periorbital areas with no swelling, redness, or edema. ENT: Nares patent. No nasal discharge, no septal abnormalities noted. Tympanic membranes are normal and external auditory canals are clear. Oropharynx with no redness, swelling, or masses, exudates, or evidence of obstruction, uvula midline. Mucous membranes moist. Neck: Trachea midline, no thyromegaly or masses palpated, and no cervical lymphadenopathy. Supple, full range of motion without nuchal rigidity, or vertebral point tenderness. No Meningismus. Chest/axilla: Normal chest wall appearance and motion. Nontender with no deformity. No lesions are appreciated. Cardiovascular: Regular rate and rhythm with a normal S1 and S2. No gallops, murmurs, or rubs. Normal PMI, no JVD. No pulse deficits. Respiratory: Lungs have equal breath sounds bilaterally, clear to auscultation and percussion. No rales, rhonchi or wheezes noted. No increased work of breathing, no retractions or nasal flaring. Abdomen/GI: Soft, non-tender, with normal bowel sounds. No distension or tympany. No guarding or rebound. No evidence of tenderness throughout. Back: No spinal tenderness. No costovertebral tenderness. Full range of motion. Neuro: Awake and alert, GCS 15, oriented to person, place, time, and situation. Cranial nerves II-XII grossly intact. Motor strength 5/5 in all extremities. Sensory grossly intact. Cerebellar exam normal. Normal gait. Psych: Awake, alert, with orientation to person, place and time. Behavior, mood, and affect are within normal limits. 17:52 Skin: no new laceration. Vital Signs: 17:51 BP 141 / 94; Pulse 70; Resp 18; Temp 98.7(O); Pulse Ox 100% on R/A; Pain 0/10; ks7 18:21 BP 140 / 72; Pulse 83; Resp 18; Temp 98.7(O); Pulse Ox 100% on R/A; Pain 0/10; ks7 MDM: 17:43 Patient medically screened. [facility] 17:56 Data reviewed: vital signs, nurses notes. Data interpreted: personnel monitor: rate is 70 katie beats/min, rhythm is regular, Pulse oximetry: on room air is 100 %. 17:57 Differential diagnosis: bruising depedent. [facility] Administered Medications: No medications were administered Disposition: 11/10/19 18:01 Discharged to Home. Impression: Encounter for attention to dressings, sutures and drains - bruising. - Condition is Stable. - Discharge Instructions: Sutured Wound Care, Sutured Wound Care, [id number]. - Medication Reconciliation Form, Thank You Letter, Antibiotic Education, Prescription Opioid Use form. - Follow up: Christophe Luke MD; When: 5 - 6 days; Reason: Recheck today's complaints, Re-evaluation by your physician. - Problem is new. - Symptoms have improved. Signatures: Jovanni Tillman MD MD cha Songcuan, Kathleen RN RN ks7 Corrections: (The following items were deleted from the chart) 18:22 18:01 11/10/2019 18:01 Discharged to Home. Impression: Encounter for attention to ks7 dressings, sutures and drains - bruising. Condition is Stable. Forms are Medication Reconciliation Form, Thank You Letter, Antibiotic Education, Prescription Opioid Use. Follow up: Christophe Luke; When: 5 - 6 days; Reason: Recheck today's complaints, Re-evaluation by your physician. Problem is new. Symptoms have improved. [facility]
[2019-11-10 18:31] VITALS: TEMP 98.7; O2SAT 100
[2019-11-10 18:33] VITALS: BP 140/72
== END 2019-11-10 18:22 | disposition home or self-care (01) ==
LOC: ER 17:01
DX: S51.812D Laceration without foreign body of left forearm, subsequent encounter (principal); F17.210 Nicotine dependence, cigarettes, uncomplicated; Z88.0 Allergy status to penicillin; Z88.7 Allergy status to serum and vaccine
CPT/HCPCS: 99282

== ENCOUNTER 2019-11-22 13:43 | Emergency (ER) | payer SELFPAY ==
--- NOTE | 2019-11-22 14:24 | EDPHYS ---
Physician Documentation [facility] Name: Tammie Do Age: 34 yrs Sex: Female : 1985 Arrival Date: 11/22/2019 Time: 13:45 Bed 6 Private MD: ED Physician Leatha Vail HPI: 11/21 14:20 This 34 yrs old Female presents to ER via Ambulatory with complaints of Suture ma2 Removal. 14:20 The patient has sutures on the left arm. Previous treatment: The patient was initially ma2 treated 9 day(s) ago. Sutures/kori progress: The patient has no c/o's. The wound is well-healing with no redness, swelling, discharge, or dehiscence reported. Historical: - Allergies: 13:51 PENICILLINS; sv 13:51 Tetanus Vaccines \T\ Toxoid; sv - Home Meds: 13:51 None [Active]; sv - PMHx: 13:51 Anemia; sv - PSHx: 13:51 None; sv - Immunization history:: Adult Immunizations up to date. - Social history:: Smoking status: Patient reports the use of cigarette tobacco products, smokes one-half pack cigarettes per day. ROS: 14:21 Constitutional: Negative for fever, chills, and weight loss. ma2 14:21 All other systems are negative. Exam: 14:21 Constitutional: This is a well developed, well nourished patient who is awake, alert, ma2 and in no acute distress. Chest/axilla: Normal chest wall appearance and motion. Nontender with no deformity. No lesions are appreciated. Cardiovascular: Regular rate and rhythm with a normal S1 and S2. No gallops, murmurs, or rubs. Normal PMI, no JVD. No pulse deficits. Respiratory: Lungs have equal breath sounds bilaterally, clear to auscultation and percussion. No rales, rhonchi or wheezes noted. No increased work of breathing, no retractions or nasal flaring. Abdomen/GI: Soft, non-tender, with normal bowel sounds. No distension or tympany. No guarding or rebound. No evidence of tenderness throughout. Back: No spinal tenderness. No costovertebral tenderness. Full range of motion. MS/ Extremity: Pulses equal, no cyanosis. Neurovascular intact. Full, normal range of motion. Neuro: Awake and alert, GCS 15, oriented to person, place, time, and situation. Cranial nerves II-XII grossly intact. Motor strength 5/5 in all extremities. Sensory grossly intact. Cerebellar exam normal. Normal gait. 14:21 Back: No spinal tenderness. No costovertebral tenderness. Full range of motion. MS/ ma2 Extremity: left foearm sutures removed, wound has induration, dry well healed Pulses equal, no cyanosis. Neurovascular intact. Full, normal range of motion. Vital Signs: 13:50 BP 137 / 76; Pulse 77; Resp 16; Temp 99; Pulse Ox 100% on R/A; Weight 61.23 kg; Height sv 4 ft. 9 in. (144.78 cm); Pain 0/10; 13:50 Body Mass Index 29.21 (61.23 kg, 144.78 cm) sv MDM: 13:57 Patient medically screened. [facility] 14:21 Data reviewed: vital signs, nurses notes. Counseling: I had a detailed discussion with maRenee the patient and/or guardian regarding: the historical points, exam findings, and any diagnostic results supporting the discharge/admit diagnosis, the presence of at least one elevated blood pressure reading (>120/80) during this emergency department visit. Response to treatment: the patient's symptoms have markedly improved after treatment. 11/21 14:20 Order name: Dressing - Wound; Complete Time: 14:38 [facility] Administered Medications: No medications were administered Disposition: 11/22/19 14:23 Discharged to Home. Impression: Encounter for removal of sutures. - Condition is Stable. - Discharge Instructions: Suture Removal, Care After. - Prescriptions for Clindamycin HCl 300 mg Oral Capsule - take 1 capsule by ORAL route every 6 hours for 10 days; 40 capsule. - Medication Reconciliation Form, Thank You Letter, Antibiotic Education, Prescription Opioid Use form. - Follow up: Private Physician; When: Tomorrow; Reason: If symptoms return, Continuance of care. Signatures: Zeinab Zhou RN RN Latoya Handy RN RN Leatha Vail MD MD [facility] Corrections: (The following items were deleted from the chart) 14:41 14:23 11/22/2019 14:23 Discharged to Home. Impression: Encounter for removal of ph sutures. Condition is Stable. Forms are Medication Reconciliation Form, Thank You Letter, Antibiotic Education, Prescription Opioid Use. Follow up: Private Physician; When: Tomorrow; Reason: If symptoms return, Continuance of care. ma2
--- NOTE | 2019-11-22 14:24 | ER ---
Nurse's Notes [facility] Name: Tammie Do Age: 34 yrs Sex: Female : 1985 Arrival Date: 11/22/2019 Time: 13:45 Bed 6 Private MD: Diagnosis: Encounter for removal of sutures Presentation: 11/21 13:50 Chief complaint: Sutures on left forearm 11/08, here for removal. Coronavirus screen: At sv this time, the client does not indicate any symptoms associated with coronavirus-19. Ebola Screen: No symptoms or risks identified at this time. Initial Sepsis Screen: Does the patient meet any 2 criteria? No. Patient's initial sepsis screen is negative. Does the patient have a suspected source of infection? No. Patient's initial sepsis screen is negative. Risk Assessment: Do you want to hurt yourself or someone else? Patient reports no desire to harm self or others. Onset of symptoms was November 22, 2019. 13:50 Method Of Arrival: Ambulatory sv 13:50 Acuity: YARELI 4 sv Historical: - Allergies: 13:51 PENICILLINS; sv 13:51 Tetanus Vaccines \T\ Toxoid; sv - Home Meds: 13:51 None [Active]; sv - PMHx: 13:51 Anemia; sv - PSHx: 13:51 None; sv - Immunization history:: Adult Immunizations up to date. - Social history:: Smoking status: Patient reports the use of cigarette tobacco products, smokes one-half pack cigarettes per day. Screenin:26 Abuse screen: Denies threats or abuse. Denies injuries from another. Nutritional ph screening: No deficits noted. Tuberculosis screening: No symptoms or risk factors identified. Fall Risk None identified. Assessment: 14:25 General: Appears in no apparent distress. comfortable, Behavior is calm, cooperative, ph appropriate for age, Denies fever. Pain: Denies pain. Neuro: Level of Consciousness is awake, alert, obeys commands, Oriented to person, place, time, situation. Cardiovascular: Capillary refill < 3 seconds in bilateral fingers Patient's skin is warm and dry. Respiratory: Airway is patent Respiratory effort is even, unlabored. Derm: Skin is healthy with good turgor, Skin is pink, warm \T\ dry. Musculoskeletal: Circulation, motion, and sensation intact. Range of motion: intact in all extremities. 14:39 Reassessment: Patient appears in no apparent distress at this time. Patient and/or ph family updated on plan of care and expected duration. Pain level reassessed. Patient is alert, oriented x 3, equal unlabored respirations, skin warm/dry/pink. Vital Signs: 13:50 BP 137 / 76; Pulse 77; Resp 16; Temp 99; Pulse Ox 100% on R/A; Weight 61.23 kg; Height sv 4 ft. 9 in. (144.78 cm); Pain 0/10; 13:50 Body Mass Index 29.21 (61.23 kg, 144.78 cm) sv ED Course: 13:45 Patient arrived in ED. ds1 13:51 Triage completed. sv 13:51 Arm band placed on. sv 13:57 Leatha Vail MD is Attending Physician. ma2 14:25 Latoya Patton, RN is Primary Nurse. ph 14:26 Patient has correct armband on for positive identification. Bed in low position. Call ph light in reach. Side rails up X 1. Pulse ox on. NIBP on. Door closed. Noise minimized. Warm blanket given. 14:26 No provider procedures requiring assistance completed. Patient did not have IV access ph during this emergency room visit. 14:39 Dressings: non-adherent dressing x 1 dorsal aspect of left forearm Tegaderm X 1; left ph arm. Administered Medications: No medications were administered Outcome: 14:23 Discharge ordered by . ma2 14:27 Discharged to home ambulatory. ph 14:27 Condition: good 14:27 Discharge instructions given to patient, Instructed on discharge instructions, follow up and referral plans. medication usage, Demonstrated understanding of instructions, follow-up care, medications, Prescriptions given X 1. 14:41 Patient left the ED. ph Signatures: Zeinab Zhou RN RN Shira Avitia ds1 Latoya Patton RN RN Leatha Vail MD MD waRenee Corrections: (The following items were deleted from the chart) 14:40 14:27 Discharge instructions given to patient, Instructed on discharge instructions, ph follow up and referral plans. Demonstrated understanding of instructions, follow-up care, ph
[2019-11-22 14:48] VITALS: BP 137/76; TEMP 99; O2SAT 100
== END 2019-11-22 14:41 | disposition home or self-care (01) ==
LOC: ER 13:43
DX: Z48.02 Encounter for removal of sutures (principal)
CPT/HCPCS: 99283

== ENCOUNTER → 2024-07-22 | Emergency (ER) | payer SELFPAY | LOC: ER 11:18 | DX: Z02.9 Encounter for administrative examinations, unspecified (principal) ==